=== PATIENT | male | born 1945 | race Caucasian/White ===

== ENCOUNTER 2017-12-18 12:00 | Emergency (ER) | payer MEDICARE ==
[~2017-12-18] VITALS: Ht 182.9 cm; Wt 86.2 kg
[~2017-12-18 12:00] MED LIST: FLAGYL500 MG PO; NEXIUM40 MG PO; PROTONIX40 MG PO
[2017-12-18] MEDS ORDERED: CHEWABLE-VITE1 EAC1 PO (12:14)
[2017-12-18 12:58] LABS: ABSOLUTE BASOPHILS 0.1 thou/uL (0.0-0.2); ABSOLUTE EOSINOPHILS 0.1 thou/uL (0.0-0.7); ABSOLUTE LYMPHOCYTES 1.2 thou/uL (0.8-5.3); ABSOLUTE MONOCYTES 0.6 thou/uL (0.0-1.2); ABSOLUTE NEUTROPHILS 3.9 thou/uL (1.6-8.1); BASOPHILS 1.9 %; HEMATOCRIT 45.5 % (42.0-52.0); HEMOGLOBIN 15.3 gm/dL (14.0-18.0); LYMPHOCYTES 19.4 %; MCH 29.7 pg (26.0-34.0); MCHC 33.7 g/dL (28.0-37.0); MCV 88.3 fL (80.0-100.0); MONOCYTES 10.7 %; MPV 8.2 fl. (7.2-11.1); NUCLEATED RBCS 0 /100WBC; PLATELET COUNT* 226 thou/uL (150-400); RBC 5.15 mil/uL (4.50-6.00); RDW-CV 13.5 % (10.5-14.5)
[2017-12-18 13:07] LABS: APTT 32.5 Seconds (25.0-31.3)
[2017-12-18 13:16] LABS: CALCIUM 9.1 mg/dL (8.5-10.1); CREATININE 0.9 mg/dL (0.6-1.3); POTASSIUM 4.5 mmol/L (3.5-5.1)
[2017-12-18 13:21] LABS: ALBUMIN 3.5 g/dL (3.4-5.0); TOTAL BILIRUBIN 0.4 mg/dL (<0.1-1.0); TOTAL PROTEIN 7.8 g/dL (6.4-8.2)
[2017-12-18] MEDS ORDERED: KEFLEX500 M1 PO (13:33)
[2017-12-18] MEDS ORDERED: BACTRIM DS TAB1 EACH PO (13:33)
[2017-12-18] MEDS ORDERED: NORCO 5-325 TA1 EACH PO (13:33)
[2017-12-18 15:13] VITALS: BP 133/80
== END 2017-12-18 15:14 | disposition home or self-care (01) ==
LOC: M.ERS 12:00
PROVIDERS: Family Medicine
DX: S81.801A Unspecified open wound, right lower leg, initial encounter (principal); L03.115 Cellulitis of right lower limb; M79.604 Pain in right leg; K21.9 Gastro-esophageal reflux disease without esophagitis; F17.210 Nicotine dependence, cigarettes, uncomplicated; X58.XXXA Exposure to other specified factors, initial encounter; Y93.89 Activity, other specified; Y92.89 Other specified places as the place of occurrence of the external cause; Y99.8 Other external cause status

== ENCOUNTER → 2017-12-22 | Outpatient (CLI) | payer MEDICARE ==
[~2017-12-22] MED LIST changes: +BACTRIM DS TAB1 EACH PO; +CHEWABLE-VITE1 EAC1 PO; +KEFLEX500 M1 PO; +NORCO 5-325 TA1 EACH PO
== END ==
LOC: M.WC 03:32
DX: I87.2 Venous insufficiency (chronic) (peripheral) (principal); L97.811 Non-pressure chronic ulcer of other part of right lower leg limited to breakdown of skin; L84 Corns and callosities; B35.1 Tinea unguium; J44.9 Chronic obstructive pulmonary disease, unspecified; F17.200 Nicotine dependence, unspecified, uncomplicated; Z72.89 Other problems related to lifestyle

== ENCOUNTER → 2017-12-29 | Outpatient (CLI) | payer MEDICARE | LOC: M.WC 02:46 | DX: L97.811 Non-pressure chronic ulcer of other part of right lower leg limited to breakdown of skin (principal); I87.2 Venous insufficiency (chronic) (peripheral); L84 Corns and callosities; J44.9 Chronic obstructive pulmonary disease, unspecified; F17.200 Nicotine dependence, unspecified, uncomplicated; Z72.89 Other problems related to lifestyle ==

== ENCOUNTER → 2018-01-05 | Outpatient (CLI) | payer MEDICARE | LOC: M.WC 02:26 | DX: L97.811 Non-pressure chronic ulcer of other part of right lower leg limited to breakdown of skin (principal); I87.2 Venous insufficiency (chronic) (peripheral); L84 Corns and callosities; B35.1 Tinea unguium; J44.9 Chronic obstructive pulmonary disease, unspecified; F17.200 Nicotine dependence, unspecified, uncomplicated; Z72.89 Other problems related to lifestyle ==

== ENCOUNTER → 2018-01-12 | Outpatient (CLI) | payer MEDICARE | LOC: M.WC 02:55 | DX: I87.2 Venous insufficiency (chronic) (peripheral) (principal); L97.811 Non-pressure chronic ulcer of other part of right lower leg limited to breakdown of skin; J44.9 Chronic obstructive pulmonary disease, unspecified; F17.210 Nicotine dependence, cigarettes, uncomplicated; Z72.89 Other problems related to lifestyle ==

== ENCOUNTER → 2018-01-19 | Outpatient (CLI) | payer MEDICARE | LOC: M.WC 00:32 | DX: I87.2 Venous insufficiency (chronic) (peripheral) (principal); L97.811 Non-pressure chronic ulcer of other part of right lower leg limited to breakdown of skin; J44.9 Chronic obstructive pulmonary disease, unspecified; F17.210 Nicotine dependence, cigarettes, uncomplicated; Z72.89 Other problems related to lifestyle ==

== ENCOUNTER → 2020-11-15 | Outpatient (CLI) | payer MEDICARE | LOC: M.WC 09:00 | PROVIDERS: ATTEND Family Medicine | DX: I87.311 Chronic venous hypertension (idiopathic) with ulcer of right lower extremity (principal); L97.812 Non-pressure chronic ulcer of other part of right lower leg with fat layer exposed; S61.011A Laceration without foreign body of right thumb without damage to nail, initial encounter; S61.002A Unspecified open wound of left thumb without damage to nail, initial encounter; J44.9 Chronic obstructive pulmonary disease, unspecified; K21.9 Gastro-esophageal reflux disease without esophagitis; F17.200 Nicotine dependence, unspecified, uncomplicated; X58.XXXA Exposure to other specified factors, initial encounter; Y93.89 Activity, other specified; Y92.89 Other specified places as the place of occurrence of the external cause; Y99.8 Other external cause status ==

== ENCOUNTER → 2020-11-22 | Outpatient (CLI) | payer MEDICARE | LOC: M.WC 09:21 → M.RAD 09:21 → M.WC 09:30 | PROVIDERS: ATTEND Family Medicine | DX: I87.311 Chronic venous hypertension (idiopathic) with ulcer of right lower extremity (principal); L97.812 Non-pressure chronic ulcer of other part of right lower leg with fat layer exposed; S61.012D Laceration without foreign body of left thumb without damage to nail, subsequent encounter; J44.9 Chronic obstructive pulmonary disease, unspecified; K21.9 Gastro-esophageal reflux disease without esophagitis; F17.200 Nicotine dependence, unspecified, uncomplicated; X58.XXXD Exposure to other specified factors, subsequent encounter ==

== ENCOUNTER → 2020-11-29 | Outpatient (CLI) | payer MEDICARE | LOC: M.WC 09:26 | PROVIDERS: ATTEND Family Medicine | DX: I87.311 Chronic venous hypertension (idiopathic) with ulcer of right lower extremity (principal); L97.812 Non-pressure chronic ulcer of other part of right lower leg with fat layer exposed; S61.012D Laceration without foreign body of left thumb without damage to nail, subsequent encounter; J44.9 Chronic obstructive pulmonary disease, unspecified; K21.9 Gastro-esophageal reflux disease without esophagitis; F17.200 Nicotine dependence, unspecified, uncomplicated; X58.XXXD Exposure to other specified factors, subsequent encounter ==

== ENCOUNTER → 2020-12-06 | Outpatient (CLI) | payer MEDICARE | LOC: M.WC 09:25 | PROVIDERS: ATTEND Family Medicine | DX: I87.311 Chronic venous hypertension (idiopathic) with ulcer of right lower extremity (principal); L97.812 Non-pressure chronic ulcer of other part of right lower leg with fat layer exposed; S61.012D Laceration without foreign body of left thumb without damage to nail, subsequent encounter; J44.9 Chronic obstructive pulmonary disease, unspecified; K21.9 Gastro-esophageal reflux disease without esophagitis; F17.200 Nicotine dependence, unspecified, uncomplicated; X58.XXXD Exposure to other specified factors, subsequent encounter ==

== ENCOUNTER → 2020-12-13 | Outpatient (CLI) | payer MEDICARE | LOC: M.WC 09:28 | PROVIDERS: ATTEND Family Medicine | DX: I87.311 Chronic venous hypertension (idiopathic) with ulcer of right lower extremity (principal); L97.812 Non-pressure chronic ulcer of other part of right lower leg with fat layer exposed; S61.011D Laceration without foreign body of right thumb without damage to nail, subsequent encounter; S61.012D Laceration without foreign body of left thumb without damage to nail, subsequent encounter; J44.9 Chronic obstructive pulmonary disease, unspecified; K21.9 Gastro-esophageal reflux disease without esophagitis; F17.200 Nicotine dependence, unspecified, uncomplicated; X58.XXXD Exposure to other specified factors, subsequent encounter ==